=== PATIENT | female | born 1955 | race Caucasian/White ===

== ENCOUNTER 2018-07-26 19:40 | Observation (INO) | payer OTHER, MEDICARE ==
--- NOTE | 2018-07-26 19:51 | EDPHY ---
H & P Time Seen by Provider: 07/26/18 19:51 HPI/ROS: HPI CHIEF COMPLAINT: Vomiting and diarrhea x1 week. HISTORY OF PRESENT ILLNESS: 63-year-old female, presents to the emergency room with vomiting and diarrhea. She states she has been ill for 1 week. She is visiting from [place]. She states for the past week she has had watery diarrhea nonbloody. It did get better during the middle the week however continues over the past 48 hr. The diarrhea got worse over the last 24 hr. Nonbloody. No fever. This evening she had nausea and vomiting x2 episodes. Nonbilious nonbloody. Complains of abdominal cramping and abdominal bloating. Denies chest pain or shortness of breath, denies fever. Denies bloody stool. Past Medical History: History of hypertension, hyperlipidemia, insulin- dependent diabetes Past Surgical History: No recent surgery. Social History: Resides in [place] here for graduation. Staying with a local friend.. Denies drugs alcohol tobacco Family History: Noncontributory ROS REVIEW OF SYSTEMS: 10 Systems were reviewed and negative with the exception of the elements mentioned in the history of present illness. Exam Constitutional nontoxic, triage nursing summary reviewed, vital signs reviewed , awake/alert. Vital signs noted to be HTN upon arrival. Eyes normal conjunctivae and sclera, EOMI, PERRLA. HENT normal inspection, atraumatic, dry mucus membranes, no epistaxis, neck supple/ no meningismus, no raccoon eyes. Respiratory clear to auscultation bilaterally, normal breath sounds, no respiratory distress, no wheezing. Cardiovascular rate normal, regular rhythm, no murmur, no edema, distal pulses normal. Gastrointestinal mild tender palpation lower abdomen, no peritoneal signs,, no rebound, no guarding, normal bowel sounds, no distension, no pulsatile mass. Genitourinary no CVA tenderness. Musculoskeletal no midline vertebral tenderness, full range of motion, no calf swelling, no tenderness of extremities, no meningismus, good pulses, neurovascularly intact. Skin pink, warm, & dry, no rash, skin atraumatic. Neurologic awake, alert and oriented x 3, AAOx3, moves all 4 extremities equally, motor intact, sensory intact, CN II-XII intact, normal cerebellar, normal vision, normal speech. Psychiatric normal mood/affect. Heme/Lymph/Immune no lymphadenopathy. Differential Diagnosis: Includes but is not limited to in a particular order dehydration, electrolyte disturbance, enteritis, viral illness, colitis, diverticulitis Medical Decision Making: Plan for this patient IV establishment IV fluid bolus 2 L normal saline, IV Zofran for nausea, basic labs, urinalysis, CT scan abdomen pelvis with IV contrast rule out significant colitis. Stool study. Re-evaluation: Labs reviewed, white count [id number], hematocrit 52 and hemoglobin 17, platelet count 365, Trop 0.00 Electrolytes are reassuring. Normal potassium normal kidney function. Glucose 155. 2227: Patient vomiting here 1 time, also had diarrhea(NON BLOODY). On re- examination at this time she does complain of generalized weakness. Still does not feel 100%. She is from out of town she is clinically dehydrated on exam, will benefit from overnight observation for gentle high IV hydration, and further observation for nausea vomiting diarrhea. She is diabetic. She agrees for admission to the hospital agrees for transfer to [facility]. Agrees to go by ambulance for medical transport. Consult the hospitalist service for admission. Patient dehydrated. 223: Dr. Stahl agrees to admit. Source: Patient Constitutional: Initial Vital Signs Temperature (C) 36.5 C 07/26/18 19:51 Heart Rate 80 07/26/18 19:51 Respiratory Rate 18 07/26/18 19:51 Blood Pressure 226/91 H 07/26/18 19:51 O2 Sat (%) 95 07/26/18 19:51 O2 Delivery Mode Room Air Allergies/Adverse Reactions: diazepam [From Valium] Allergy (Verified 07/26/18 19:49) erythromycin base Allergy (Verified 07/26/18 19:49) Penicillins Allergy (Verified 07/26/18 19:49) Home Medications: Medication Instructions Recorded Aspirin [Aspirin 81mg (*)] 81 mg PO HS 07/26/18 Atorvastatin Calcium [Lipitor 40 80 mg PO 07/26/18 mg (*)] Cetirizine [ZyrTEC 10 mg (*)] 10 mg PO 07/26/18 Insulin Glargine [Lantus] 70 unit SC 07/26/18 Insulin Lispro [humALOG LISPRO 100 40 unit SC BIDMEAL 07/26/18 units/ml (*)] Lisinopril [Zestril 10 mg (*)] 10 mg PO 07/26/18 Omeprazole 20 mg PO DAILY 07/26/18 Ranitidine HCl [Zantac] 150 mg PO HS 07/26/18 Sertraline HCl [Zoloft 25mg (*)] 25 mg PO DAILY 07/26/18 Cholecalciferol Vit D3 [Vitamin D3 5,000 units PO DAILY 07/27/18 2000 units tab (OTC)] Fenofibrate,Micronized 134 mg PO DAILY 07/27/18 [Fenofibrate] Levothyroxine [Synthroid 112 mcg 112 mcg PO DAILY06 07/27/18 (*)] NIFEdipine [Nifedipine ER] 30 mg PO DAILY 07/27/18 Venlafaxine HCl [Venlafaxine HCl 150 mg PO DAILY 07/27/18 ER] Loperamide HCl [Imodium 2 mg (*)] 2 mg PO QID PRN cap 07/28/18 Medical Decision Making - Data Points Medications Given: Discontinued Medications Acetaminophen (Tylenol) 650 mg PO Q4HRS PRN PRN Reason: Pain, Mild/Fever, Can Take PO Stop: 01/22/19 23:56 Last Admin: 07/27/18 00:46 Dose: 650 mg Aspirin (Aspirin) 81 mg PO HS KENDRA Stop: 01/23/19 20:59 Last Admin: 07/27/18 20:33 Dose: 81 mg Atorvastatin Calcium (Lipitor) 80 mg PO HS KENDRA Stop: 01/23/19 20:59 Last Admin: 07/27/18 20:33 Dose: 80 mg Cetirizine HCl (Zyrtec) 10 mg PO HS KENDRA Stop: 01/23/19 20:59 Last Admin: 07/27/18 20:34 Dose: 10 mg Cholecalciferol (Vitamin D) 5,000 units PO DAILY KENDRA Stop: 01/24/19 08:59 Last Admin: 07/28/18 09:10 Dose: 5,000 units Famotidine (Pepcid) 20 mg IVP EDNOW ONE Stop: 07/26/18 22:33 Last Admin: 07/26/18 22:39 Dose: 20 mg Famotidine (Pepcid) 20 mg PO HS KENDRA Stop: 01/23/19 20:59 Last Admin: 07/27/18 20:32 Dose: 20 mg Sodium Chloride (Ns) 2,000 mls @ 0 mls/hr IV ONCE ONE PRN Reason: Wide Open Stop: 07/26/18 19:59 Last Admin: 07/26/18 20:11 Dose: 2,000 mls Sodium Chloride (Ns) 1,000 mls @ 0 mls/hr IV ONCE ONE PRN Reason: Wide Open Stop: 07/26/18 22:32 Last Admin: 07/26/18 22:38 Dose: 1,000 mls Sodium Chloride (Ns) 1,000 mls @ 125 mls/hr IV CONT KENDRA Stop: 07/27/18 07:44 Last Admin: 07/27/18 06:35 Dose: Not Given Insulin Glargine (Lantus Syringe) 70 units SC HS KENDRA Stop: 01/23/19 20:59 Last Admin: 07/27/18 20:34 Dose: 70 units Insulin Human Lispro (Humalog Lispro) 0 unit SC TIDMEAL KENDRA PRN Reason: Protocol Stop: 01/23/19 07:59 Last Admin: 07/28/18 09:11 Dose: 2 units Levothyroxine Sodium (Synthroid) 112 mcg PO DAILY06 KENDRA Stop: 01/24/19 05:59 Last Admin: 07/28/18 05:33 Dose: 112 mcg Lisinopril (Zestril) 10 mg PO HS KENDRA Stop: 01/23/19 20:59 Last Admin: 07/27/18 20:33 Dose: 10 mg Loperamide HCl ( Imodium) 2 mg PO QID PRN PRN Reason: Diarrhea/Loose Stools Stop: 01/23/19 01:54 Last Admin: 07/27/18 17:41 Dose: 2 mg Miscellaneous Medication (Canagliflozin [Invokana]) 300 mg PO DAILY KENDRA Stop: 01/24/19 08:59 Last Admin: 07/28/18 09:11 Dose: Not Given Miscellaneous Medication (Fenofibrate,Micronized [Fenofibrate]) 134 mg PO DAILY [facility] Stop: 01/24/19 08:59 Last Admin: 07/28/18 09:11 Dose: Not Given Nifedipine (Adalat Cc) 30 mg PO DAILY KENDRA Stop: 01/24/19 08:59 Last Admin: 07/28/18 09:10 Dose: 30 mg Ondansetron HCl (Zofran) 4 mg IVP EDNOW ONE Stop: 07/26/18 19:59 Last Admin: 07/26/18 20:11 Dose: 4 mg Ondansetron HCl (Zofran) 4 mg IVP Q4HRS PRN PRN Reason: Nausea/Vomiting, Can't Take PO Stop: 01/22/19 23:56 Last Admin: 07/27/18 00:44 Dose: 4 mg Pantoprazole Sodium (Protonix) 40 mg PO DAILY KENDRA Stop: 01/24/19 08:59 Last Admin: 07/28/18 09:10 Dose: 40 mg Sertraline HCl (Zoloft) 25 mg PO DAILY KENDRA Stop: 01/24/19 08:59 Last Admin: 07/28/18 09:10 Dose: 25 mg Venlafaxine HCl (Effexor Xr) 150 mg PO DAILY KENDRA Stop: 01/24/19 08:59 Last Admin: 07/28/18 09:10 Dose: 150 mg Point of Care Test Results: CBC CBC Collection Date 07/26/18 CBC Collection Time 20:05 WBC 17.51 RBC 5.78 HGB 17.6 HCT 52.6 PLT 365 Neut # 13.28 Neut 75.9 LYMPH # 2.40 LYMPH 13.7 MCV 91.0 Chemistry 07/26/18 07/26/18 20:14 20:12 POC Sodium 144 mEq/L mEq/L (135-145) POC Potassium 3.9 mEq/L mEq/L (3.3-5.0) POC Chloride 106.0 mEq/L mEq/L (97-110) POC Total CO2 29 mEq/L mEq/L (22-31) POC BUN 13 mg/dL mg/dL (7-23) POC Creatinine 0.9 mg/dL mg/dL (0.6-1.0) POC Glucose 155 mg/dL H mg/dL (70-100) POC Calcium 10.9 mg/dL H mg/dL (8.5-10.4) POC Total Bilirubin 0.7 mg/dL mg/dL (0.1-1.4) POC AST 38 IU/L IU/L (14-46) POC ALT 40 IU/L IU/L (9-52) POC Alk Phosphatase 124 IU/L IU/L (38-126) POC Troponin I 0.00 ng/mL ng/mL (0.00-0.08) POC Total Protein 7.8 g/dL g/dL (6.3-8.2) POC Albumin 4.2 g/dL g/dL (3.5-5.0) Urine Dip Collection Date 07/26/18 Collection Time 21:50 Specific [place] (1.002-1.030) 1.005 PH (5.0-7.5) 5.0 Leukocytes (Negative) Negative Nitrites (Negative) Negative Protein (Negative) Negative Glucose (Negative) Negative Ketones (Negative) Negative Urobilnogen (0.2-1.0 EU) 0.2 Bilirubin (Negative) Negative Blood (Negative) 1+ Departure - Departure Disposition: [facility] Inpatient Acute Clinical Impression: Dehydration Diarrhea Qualifiers: Diarrhea type: unspecified type Qualified Code(s): R19.7 - Diarrhea, unspecified Vomiting Qualifiers: Vomiting type: unspecified Vomiting Intractability: non-intractable Nausea presence: with nausea Qualified Code(s): R11.2 - Nausea with vomiting, unspecified Condition: Good
[2018-07-26] MEDS ORDERED: NS 2,000 ML IV ONE (19:58)
[2018-07-26] MEDS ORDERED: ONDANSETRON 4 MG/2 ML VIAL IVP ONE (19:58)
[2018-07-26] MEDS ORDERED: IOPAMIDOL (ISOVUE-300) 100 ML BTL ONE (20:07)
[2018-07-26] MEDS ORDERED: NS 1,000 ML IV ONE (22:31)
[2018-07-26] MEDS ORDERED: FAMOTIDINE 20 MG/2 ML SDV IVP ONE (22:32)
[2018-07-26] MEDS ORDERED: PROMETHAZINE HCL 25 MG/ML INJ IVP PRN (23:57)
[2018-07-26] MEDS ORDERED: ONDANSETRON 4 MG/2 ML VIAL IVP PRN (23:57)
[2018-07-26] MEDS ORDERED: ONDANSETRON DISINTEGRATING 4 MG TAB PO PRN (23:57)
[2018-07-26] MEDS ORDERED: ACETAMINOPHEN 325 MG TAB PO PRN (23:57)
[2018-07-27] MEDS ORDERED: D50W 25 GM/50 ML SYR IVP PRN (01:54)
[2018-07-27] MEDS ORDERED: LOPERAMIDE HCL 2 MG CAP PO PRN (01:55)
--- NOTE | 2018-07-27 02:44 | GHP ---
[f rep st] HISTORY AND PHYSICAL DATE OF ADMISSION: 07/26/2018 Patient from out of town without local PCP. SOURCE: Patient provides history, appears reliable. EMR was reviewed and case discussed with ED pro vider. CHIEF COMPLAINT: Nausea, vomiting, diarrhea. HISTORY OF PRESENT ILLNESS: This is a very pleasant 63-year-old female with a past medical history s ignificant for hypothyroidism, GERD, anxiety, depression, HTN, HLD, diabetes type 2 who presents to [facility] emergency department today with complaints of approximately 1 week of watery diarrhea and several episodes of nausea and vomiting starting today. The patient currently visiting from [place]. She f luther in last Sunday. Two days after this on Sunday, patient subsequently developed watery diarrhe a without any blood. She also had been complaining of abdominal cramping and bloating. Her pain is primarily a band at the level of the umbilicus. She denies any known sick contacts. The patient den ies any fevers. No hematemesis. The patient states she has not had significant quantities to drink and limited oral intake over the last several days. REVIEW OF SYSTEMS: Ten systems reviewed, negative except as noted above. ALLERGIES: Diazepam, erythromycin, penicillins. HOME MEDICATIONS: Pending pharmacy verification. Briefly Zyrtec, Synthroid, sertraline, ranitidine, Prozac, omeprazole, lisinopril, Lipitor, Lantus, Invokana, Humalog, atorvastatin, aspirin. The patie nt reports that she takes 70 units of long-acting insulin at HS and 40 units twice daily with meals. PAST SURGICAL HISTORY: Significant for cataract extraction and lens placement and C-sections. FAMILY HISTORY: Negative for GI complications or disorders. SOCIAL HISTORY: Patient is visiting from [place]. She does not smoke, drink, or utilize any illici t drugs or marijuana. CODE STATUS: Full. PHYSICAL EXAMINATION: VITAL SIGNS: Upon arrival to the emergency department at [facility]. Blood pressure is 226/91, heart rate 80, respiratory rate 18, O2 saturation 95% on room air, t emperature 36.5. CURRENT VITAL SIGNS: Blood pressure is 173/76, heart rate is 82, respiratory rate 1 8, O2 sats 90% to 95% on room air, temperature 36.9. Repeated bedside blood pressure is 125/57. GENE RAL: No acute distress. Pleasant adult female is lying quietly in bed. She does appear fatigued, but nontoxic appearing, pleasant, and cooperative. HEAD: Normocephalic, atraumatic. EYES: Extraocula r muscles grossly intact. Pupils equal, round, react to light bilaterally and symmetric. Lens reflex appreciated bilaterally. NECK: Supple. Trachea midline. ENT: Mucous membranes appear moist. The oropharynx is slightly tacky on tongue. Dentition intact. No nasal discharge. CV: Regular rate and rhythm. No murmurs, rubs, or gallops appreciated. RESPIRATORY: Lungs are clear to auscultation wilfrido aterally. No wheezes, rales, or rhonchi appreciated. ABDOMEN: Obese, soft with some mild tenderness to palpation over the mid abdomen. No rebound or guarding. Abdomen not significantly distended. G U: No suprapubic tenderness to palpation. No Thompson catheter in place. EXTREMITIES: The patient sit s up independently. Strength grossly intact. NEURO: Grossly nonfocal. No facial drooping. Moves a ll extremities as noted above. PSYCH: Patient is pleasant and cooperative. She is not anxious or a gitated. Thought process, content and questions are appropriate. LABORATORY STUDIES: WBC point of care. WBC 17.51, H and H is 17.6 and 52.6, platelet count is 365, neutrophil percent 75.9. Sodium is 144, potassium 3.9, chloride 106, CO2 is 29, BUN is 13, creatinin e 0.9, glucose 155, calcium is 10.9, total bilirubin 0.7, ALT is 40, AST is 38, alkaline phosphatase is 124. Troponin negative. Total protein 7.8, albumin 4.2. GI PCR is pending. CT abdomen and pelvis was reviewed showing sigmoid diverticulosis without evidence of diverticulitis. Incidental gallstone. Incidental right renal cyst with central focal calcifications. No free air or free fluid. Large and small bowel enhance normally. ASSESSMENT AND PLAN: Pleasant 63-year-old female with history of hypertension, hyperlipidemia, diabe [place] type 2, hypothyroidism, gastroesophageal reflux disease, anxiety, depression presents to the [facility] department with complaints of multiple days of watery diarrhea and nausea and vomiting starting today. 1. Watery diarrhea. The patient denies any recent travel out of the country, exposures to unfiltere d water or known sick contacts though she did travel and her symptoms started just a short time after she arrived to [place]. She denies any use of any herbal supplements or laxatives. The patient has had a single episode of watery diarrhea since her arrival. Await PCR and supportive care at this quincy e. Loperamide p.r.n. 2. Dehydration as evidenced clinically before arrival. Patient also with hemoconcentration on CBC. Patient received 3 L of intravenous fluids. She is now able to tolerate oral intake. We will pan nue to advance diet as tolerated. Hold IV fluids at this time and encourage oral hydration. 3. Nausea and vomiting, resolved. Antiemetics available p.r.n. 4. Elevated blood pressures with history of benign essential hypertension. Likely some component of pain, anxiety. The patient normally takes lisinopril. Repeat blood pressure bedside is within norm al limits. Resume home medications once med rec available. 5. Diabetes type 2. Patient has not been having a significant amount oral intake and her blood suga rs have been lower than normal. She is typically on 120 total units divided long-acting short-acting insulin. Advance diet to ADA. Regular insulin sliding scale for now with monitoring of her blood gl ucose. 6. Hyperlipidemia. Resume patient's home medications when med rec available. 7. Anxiety, depression. Resume sertraline, Prozac in the morning when available. 8. Fluid, electrolyte, nutrition. Saline lock IV at this time status post 3 L since arrival. The pa tient now tolerating oral hydration and will encourage this. Electrolyte monitoring replacement if n eeded. 9. Prophylaxis, SCDs. Anticipate short hospital stay. Encourage mobilization. If patient should r equire additional hospital days, reconsider use of a prophylactic anticoagulant. CODE STATUS: Full. DISPOSITION: Patient admitted to observation status on medical/surgical floor for continued manageme nt of her symptoms and pending GI PCR. /[id number]/MODL
[2018-07-27] MEDS: NS 1,000 ML IV SCH ×2 (02:48→06:35)
[2018-07-27] MEDS: INSULIN LISPRO 100 UNIT/ML SC SCH ×3 (09:21→17:45)
--- NOTE | 2018-07-27 10:20 | ASMTCMCOM ---
CM Note CM Note Notes: Reviewed chart, pt admitted for n/v/diarrhea. She is visiting from [place], was here two days when symptoms began. No organisms found, anticipate she will dc home with support of friend when medically stable. CM available should her needs change. DC Plan: Independent Date Signed: 07/27/2018 10:19 AM Electronically Signed By:Tamiko Kendrick RN
--- NOTE | 2018-07-27 11:11 | HOSPPROG ---
Hospitalist Progress Note Assessment/Plan: 63y female with c/o diarrhea. #Watery diarrhea -less -GI path negative -continues -will order imodium #Dehydration -resolved with IVF #N/V -resolved #HTN -cont home meds #DM2 -ADA diet #Anxiety -stable #Dispo -cont supportive care Subjective: Still having diarrhea. Less Objective: Vital Signs Temp Pulse Resp BP Pulse Ox 36.7 C 73 16 130/60 H 92 07/27/18 08:00 07/27/18 08:00 07/27/18 08:00 07/27/18 08:00 07/27/18 08:00 Laboratory Results 07/27/18 04:44 07/26/18 07/27/18 07/28/18 05:59 05:59 05:59 Intake Total 3300 Output Total 1000 Balance 2300 - Physical Exam Constitutional: appears nourished, obese Eyes: PERRL, anicteric sclera Ears, Nose, Mouth, Throat: moist mucous membranes, hearing normal Cardiovascular: No JVD, No edema Respiratory: no respiratory distress, reduced air movement Gastrointestinal: normoactive bowel sounds, No tenderness, No ascites Skin: warm, normal color Musculoskeletal: no joint effusions, generalized weakness Neurologic: AAOx3 Psychiatric: not anxious, not encephalopathic ICD10 Worksheet Patient Problems: Problems Problem Status Onset Vomiting Acute Diarrhea Acute Dehydration Acute
[2018-07-27] MEDS ORDERED: INSULIN LISPRO 100 UNIT/ML SC SCH (18:00)
[2018-07-27] MEDS ORDERED: LISINOPRIL 10 MG TAB PO SCH (21:00)
[2018-07-27] MEDS ORDERED: ATORVASTATIN CALCIUM 40 MG TAB PO SCH (21:00)
[2018-07-27] MEDS ORDERED: ASPIRIN 81 MG CHEWABLE TAB PO SCH (21:00)
[2018-07-27] MEDS ORDERED: INSULIN GLARGINE 100 UNITS/ML UNIT SC SCH (21:00)
[2018-07-27] MEDS ORDERED: FAMOTIDINE 20 MG TAB PO SCH (21:00)
[2018-07-27] MEDS ORDERED: CETIRIZINE 10 MG TAB PO SCH (21:00)
[2018-07-28] MEDS ORDERED: LEVOTHYROXINE 112 MCG TAB PO SCH (06:00)
[2018-07-28] MEDS ORDERED: NON-FORMULARY NEW DRUG (Canagliflozin [Invokana] 300 MG) PO SCH (09:00)
[2018-07-28] MEDS ORDERED: PANTOPRAZOLE SODIUM 40 MG TAB PO SCH (09:00)
[2018-07-28] MEDS ORDERED: SERTRALINE HCL 25 MG TAB PO SCH (09:00)
[2018-07-28] MEDS ORDERED: NON-FORMULARY NEW DRUG (Fenofibrate,Micronized [Fenofibrate] 134 MG) PO SCH (09:00)
[2018-07-28] MEDS ORDERED: VENLAFAXINE XR 150 MG CAP PO SCH (09:00)
[2018-07-28] MEDS ORDERED: NIFEdipine ER 30 MG TAB PO SCH (09:00)
[2018-07-28] MEDS ORDERED: CHOLECALCIFEROL VIT D3 2,000 UNITS TAB/CAP PO SCH (09:00)
[2018-07-28 09:07] VITALS: BP 127/61
[2018-07-28] MEDS: INSULIN LISPRO 100 UNIT/ML SC SCH (09:11)
--- NOTE | 2018-07-28 11:01 | ASMTDCNOTE ---
Case Management Discharge Discharge Order Complete? Answers: Yes Patient to Obtain Answers: Independently Medications Transportation Arranged Answers: Family/Friends Transport will Pick (Date 07/28/2018 12:00 AM & Time) Family Notified Answers: Yes Notes: pt called her friends Discharge Comments Notes: CM spoke with pt and pt feels comfortable discharging home to her friends' home independently. No CM needs identified at this time. Date Signed: 07/28/2018 11:00 AM Electronically Signed By:Magali Goldsmith RN
--- NOTE | 2018-07-28 11:03 | ASMTLACE ---
QUIANAE Length of stay for Answers: 2 days current admission Acuity / Level of Answers: No Care: Did the patient have an inpatient admission? Comorbidities - select Answers: Diabetes (uncontrolled or all that apply controlled) Other Notes: HTN # of Emergency department Answers: 1-2 visits in the last 6 months Social determinants Answers: Mental health diagnosis (anxiety, depression, pers onality disorders, etc.) Score: 8 Date Signed: 07/28/2018 11:02 AM Electronically Signed By:Magali Goldsmith RN
--- NOTE | 2018-07-28 11:08 | ASDISCHSUM ---
Discharge Information Plan Status:Home with No Needs Medically Cleared to Leave:07/28/2018 Discharge Date:07/28/2018 11:05 AM CM D/C Disposition:Home, Routine, Self-Care ADT D/C Disposition:Home, Routine, Self-Care Projected Discharge Date:07/28/2018 11:05 AM Transportation at D/C:Friend Discharge Delay Reason: Follow-Up Date:07/28/2018 11:05 AM Discharge Slot: Final Diagnosis:diarrhea; abdominal cramping Placement Information Patient Contact Information Contact Name:CECY Relationship:Kurtis Address: Home Phone: City: [facility] Phone: [facility] Code: Email: Financial Information Financial Class:Medicare Primary Plan Desc:MEDICARE OUTPATIENT Primary Plan Number:[id number] Secondary Plan Desc:AARP/MDR SUPPLEMENT Secondary Plan Number:[id number] Assessment Information LACE LACE Length of stay for Answers: 2 days current admission Acuity / Level of Answers: No Care: Did the patient have an inpatient admission? Comorbidities - select Answers: Diabetes (uncontrolled or all that apply controlled) Other Notes: HTN # of Emergency department Answers: 1-2 visits in the last 6 months Social determinants Answers: Mental health diagnosis (anxiety, depression, pers onality disorders, etc.) Score: 8 Date Signed: 07/28/2018 11:02 AM Electronically Signed By:Magali Chaudhari. RN [facility] CM Progress Note CM Note CM Note Notes: Reviewed chart, pt admitted for n/v/diarrhea. She is visiting from [place], was here two days when symptoms began. No organisms found, anticipate she will dc home with support of friend when medically stable. CM available should her needs change. DC Plan: Independent Date Signed: 07/27/2018 10:19 AM Electronically Signed By:Tamiko Kendrick RN Case Management Discharge Plan Note Case Management Discharge Discharge Order Complete? Answers: Yes Patient to Obtain Answers: Independently Medications Transportation Arranged Answers: Family/Friends Transport will Pick (Date 07/28/2018 12:00 AM & Time) Family Notified Answers: Yes Notes: pt called her friends Discharge Comments Notes: CM spoke with pt and pt feels comfortable discharging home to her friends' home independently. No CM needs identified at this time. Date Signed: 07/28/2018 11:00 AM Electronically Signed By:Magali Goldsmith RN Intervention Information
--- NOTE | 2018-07-28 13:57 | GDS ---
[f rep st] DISCHARGE SUMMARY DISCHARGE DIAGNOSES: 1. Diarrhea. 2. Abdominal pain. 3. Diabetes. 4. Dehydration. 5. Hypertension. 6. Anxiety. STUDIES AND PROCEDURES DONE: CT of the abdomen. PHYSICAL EXAM: GENERAL: The patient is alert. VITAL SIGNS: Afebrile at 36.6, pulse is 71, respira tory rate is 18, blood pressure is 127/61. She is saturating 94% on room air. I have seen and evalu ated the patient on the day of discharge. HOSPITAL COURSE: The patient is a 63-year-old female who presents to the emergency room with complai nts of abdominal pain and diarrhea. She was evaluated and diagnosed with: 1. Watery diarrhea. The etiology of this is unclear at the time of disposition. Her GI pathogen is negative. She does not have any signs of infection. The patient feels that this is a consequence o f her diabetic medications. She is being treated with Imodium and her condition is improved. 2. Dehydration. This is resolved with IV fluids. 3. Nausea and vomiting. This is resolved. 4. Hypertension. She has continued her home medications during this hospital course. 5. Diabetes mellitus, type 2. The patient will continue her Lantus, as well as her Humalog b.i.d. DISPOSITION: The patient will be discharged home to follow up in the outpatient setting with her [facility] physician when she returns to [place]. She wishes to stop her Invokana at the time of dis position. DISCHARGE MEDICATIONS: Please refer to EMR form. I have not provided any prescriptions for the slava ent at time of discharge. I have held her Invokana, as she wishes. I have told her to follow up and continue to check her blood sugar as soon as possible. /[id number]/MODL
== END 2018-07-28 11:05 | disposition home or self-care (01) ==
LOC: CED 19:40 → CEDHOLD 22:32 → F3E 23:41
PROVIDERS: ADMIT Family Medicine; ATTEND Internal Medicine
DX: R19.7 Diarrhea, unspecified (principal); R11.2 Nausea with vomiting, unspecified; R10.84 Generalized abdominal pain; E86.0 Dehydration; E11.9 Type 2 diabetes mellitus without complications; Z79.4 Long term (current) use of insulin; I10 Essential (primary) hypertension; E78.5 Hyperlipidemia, unspecified; E03.9 Hypothyroidism, unspecified; F41.9 Anxiety disorder, unspecified; F32.9 Major depressive disorder, single episode, unspecified
CPT/HCPCS: 74177; 96361; 96372; 96374; 96375; 96376; 99285; G0378; J1815; J2405; Q9967; 80053-ER; 84484-ER; 85025-QW-ER